=== PATIENT | male | born 1945 | race Caucasian/White ===

== ENCOUNTER 2017-06-04 16:36 | Inpatient (IN) | payer MEDICARE, OTHER ==
[~2017-06-04] VITALS: Ht 185.4 cm; Wt 87.7 kg
--- NOTE | 2017-06-04 16:36 | NUR ---
SEVERE ABDOMINAL PAIN X TODAY, NAUSEA, FEELING WEAK. NAD NOTED. PT AAO X4, AMB WITH STEADY GAIT. VSS. DR GONZALEZ AT BEDSIDE FOR EVAL.
[2017-06-04] MEDS ORDERED: MORPHINE SULFATE INJ 2 MG/ML DISP.SYRIN IV ONE ×2 (17:00→18:30)
[2017-06-04] MEDS ORDERED: IV NS 0.9% 1,000 ML BAG IV ONE (17:00)
[2017-06-04] MEDS ORDERED: ONDANSETRON HCL/PF 4 MG/2 ML VIAL IVP ONE (17:00)
[2017-06-04] MEDS ORDERED: MORPHINE SULFATE INJ 2 MG/ML DISP.SYRIN ONE (17:08)
[2017-06-04] MEDS ORDERED: ONDANSETRON HCL/PF 4 MG/2 ML VIAL ONE ×2 (17:08→18:30)
[2017-06-04 17:09] LABS: MEAN CORPUSCULAR VOLUME 88 fL (80-96)
[2017-06-04] MEDS ORDERED: MORPHINE SULFATE INJ 4 MG/ML DISP.SYRIN ONE ×2 (17:09→18:31)
--- NOTE | 2017-06-04 17:12 | NUR ---
PT TO CT
[2017-06-04 17:14] LABS: BASOPHILS # (AUTO) 1.1 /CMM (0.0-0.2); BASOPHILS % (AUTO) 1.4 % (0.0-2.0); EOSINOPHILS # (AUTO) 0.2 /CMM (0.0-0.7); EOSINOPHILS % (AUTO) 0.3 % (0.0-6.0); HEMATOCRIT 38 % (39-51); LYMPHOCYTES % (AUTO) 1.2 % (20.0-44.0); MEAN CORPUSCULAR HEMOGLOBIN 30 PG (26.0-33.0); MEAN CORPUSCULAR HGB CONC 35 g/dl (31.0-36.0); MONOCYTES # (AUTO) 0.6 /CMM (0.1-1.30); MONOCYTES % (AUTO) 0.7 % (2.0-12.0); NEUTROPHILS % (AUTO) 96.4 % (43.0-81.0); PLATELET COUNT (AUTO) 360 /CMM (150-450); RDW COEFFICIENT OF VARIATION 16.7 (11.5-15.0); RED BLOOD CELL COUNT(AUTO) 4.29 MIL/uL (4.5-6.0)
[2017-06-04 17:26] LABS: WHITE BLOOD COUNT (AUTO) 79.9 K/uL (4.3-11.0)
[2017-06-04 18:14] LABS: CALCIUM, SERUM 9.3 mg/dL (8.5-10.1); CARBON DIOXIDE 27 mmol/L (21-32); CHLORIDE 100 mmol/L (98-107); CREATININE 1.3 mg/dL (0.6-1.3); GLUCOSE 116 mg/dL (74-106); POTASSIUM 4.3 mmol/L (3.5-5.1); SODIUM SERUM 135 mmol/L (136-145); UREA NITROGEN, BLOOD 24 mg/dL (7-18)
[2017-06-04 18:20] LABS: ALANINE AMINOTRANSFERASE 21 U/L (12-78); ALBUMIN 2.5 g/dL (3.4-5.0); ALKALINE PHOSPHATASE 232 U/L (46-116); ASPARTATE AMINOTRANSFERASE 25 U/L (15-37); BILIRUBIN,DIRECT 0.2 mg/dL (0.0-0.2); BILIRUBIN,TOTAL 0.6 mg/dL (0.2-1.0); LIPASE 158 U/L (73-393); TOTAL PROTEIN, SERUM 7.4 g/dL (6.4-8.2)
[2017-06-04] MEDS ORDERED: ONDANSETRON HCL/PF - ER 4 MG/2 ML VIAL IV ONE (18:30)
--- NOTE | 2017-06-04 18:41 | NUR ---
EPIC PAGED, CHUTE BUILDER
[2017-06-04 18:43] LABS: APPEARANCE,URINE Cloudy (CLEAR); BILIRUBIN,URINE SMALL (NEGATIVE); BLOOD, URINE Trace-lysed Ery/uL (NEGATIVE); COLOR,URINE Dark (YELLOW); KETONES,URINE 40 (NEGATIVE); LEUKOCYTE ESTERASE ,URINE Negative (NEGATIVE); NITRITE, URINE Negative (NEGATIVE); PROTEIN,URINE >=300 mg/dl (NEGATIVE); UGLUCOSE Negative (NEGATIVE); UROBILINOGEN,URINE 0.2 EU/dL (0.2)
--- NOTE | 2017-06-04 18:44 | NUR ---
CALLED NURSING SUP. FOR MS BED
[2017-06-04 18:49] LABS: BAND % (MANUAL) 4 % (0.0-5.0); LYMPHOCYTES % (MANUAL) 1 % (16-48); MONOCYTES % (MANUAL) 4 % (0-11.0); NEUTROPHILS % (MANUAL) 91 (42-76)
[2017-06-04 19:00] LABS: BACTERIA,URINE None seen /HPF (None Seen); SQUAMOUS EPITHELIAL CELL,UR Moderate /HPF (None Seen); URINE AMORPHOUS URATE Many /HPF (None Seen); WBC,URINE 0-2 /HPF (0-3)
--- NOTE | 2017-06-04 19:30 | NUR ---
MS 309-1
[2017-06-04 20:00] VITALS: BP 140/67
--- NOTE | 2017-06-04 20:00 | NUR ---
RN NOTES RECEIVED NEW ADMISSION TO THE FLOOR, ALERT AND ORIENTED X4, NO SOB, NO RESPIRATORY DISTRESS, LUNG SOUNDS ARE CLEAR, SPO2 AT ROOM AIR 96%, CAME IN FOR NAUSEA AND GENERALIZED WEAKNESS, COMPLAINING OF 6/10 ABDOMINAL PAIN TO RIGHT LOWER QUADRANT DESCRIBED ACHING PAIN. ABLE TO TOLERATE WATER WITHOUT VOMITING. RECENTLY DIAGNOSED WITH PANCREATIC CANCER IN MAY 24, 2017. LAST MEAL WAS 06/03/17 AND HAD DID NOT EAT SINCE THEN. ABLE TO URINATE IN SMALL AMOUNT VIA URINAL. PER CT OF ABDOMEN, PROSTATE ENLARGED. NOTIFIED TRAVEL WRITER RAMILA. GENERAL SKIN CONDITION IS CLEAR, INTACT, STILL DRIVES. ORIENTED TO ROOM AND USE OF CALL LIGHT. NEEDS ATTENDED, CALL LIGHT WITHIN REACH.
[2017-06-04] MEDS ORDERED: Z GUARD REMEDY 2 OZ OINT TP PRN (21:30)
[2017-06-04] MEDS ORDERED: METOCLOPRAMIDE HCL 10 MG/2 ML VIAL IV PRN (21:30)
[2017-06-04] MEDS ORDERED: ONDANSETRON HCL/PF 4 MG/2 ML VIAL IVP PRN (21:30)
[2017-06-04] MEDS ORDERED: MAG HYDROX/AL HYDROX/SIMETH 30 ML UDC PO PRN (21:30)
[2017-06-04] MEDS ORDERED: MAGNESIUM HYDROXIDE 30 ML UDC PO PRN (21:30)
[2017-06-04] MEDS ORDERED: ACETAMINOPHEN 325 MG TABLET PO PRN (21:30)
[2017-06-04] MEDS ORDERED: HYDROCODONE/APAP 5/325MG 1 EACH TABLET PO PRN (21:30)
[2017-06-04] MEDS ORDERED: ZOLPIDEM TARTRATE 5 MG TABLET PO PRN (21:30)
[2017-06-04] MEDS ORDERED: MORPHINE SULFATE INJ 2 MG/ML DISP.SYRIN IV PRN ×2 (21:30)
[2017-06-04] MEDS ORDERED: TAMSULOSIN 0.4 MG CAP.SR.24H ONE (21:49)
[2017-06-04] MEDS: TAMSULOSIN 0.4 MG CAP.SR.24H PO SCH ×2 (21:58→23:18)
[2017-06-04] MEDS: IV NS 0.9% 1,000 ML IV PRN (21:58)
--- NOTE | 2017-06-04 23:17 | NUR ---
RN NOTES FLOMAX 0.8 MG PO GIVEN, SCAN DID NOT SAVE, USED MANUAL BAR CODE
--- NOTE | 2017-06-05 05:19 | NUR ---
RN NOTES IV LINE IS DISLODGED, WITH MODERATE BLEEDING, SECURED WITH DRESSING, PATIENT REFUSED IV REINSERTION. Addendum: 06/05/17 at 0611 by CESARIO BARBER RN DISREGARD ABOVE CHARTING, NOT FOR PATIENT
--- NOTE | 2017-06-05 06:10 | NUR ---
RN NOTES PATIENT IS ALERT AND AWAKE, NO SOB, NO DISTRESS, NO COMPLAIN OF ABDOMINAL PAIN, NO VOMITING, TOLERATING WATER, EDUCATED PATIENT TO ASK FOR PAIN MEDICATION IF PAIN IS STARTING LESS THAN 5/10. WITH URINARY FREQUENCY DUE TO ENLARGED PROSTATE, GIVEN FLOMAX, ALL NEEDS ATTENDED, CALL LIGHT WITHIN REACH.
--- NOTE | 2017-06-05 07:38 | NUR ---
MS/RN OPENING NOTE PATIENT IN BED IN STABLE CONDITION. A/O X 4. NO SIGNS OF ACUTE DISTRESS. NO COMPLAIN OF PAIN OR DISCOMFORT. ALL NEEDS ATTENDED TO. CALL LIGHT WITHIN REACH. WILL CONTINUE TO MONITOR TO ENSURE SAFETY.
[2017-06-05 08:54] LABS: ALBUMIN 2.4 g/dL (3.4-5.0); AMYLASE 23 U/L (25-115); CARBON DIOXIDE 28 mmol/L (21-32); CHLORIDE 102 mmol/L (98-107); CREATININE 1.7 mg/dL (0.6-1.3); GLUCOSE 72 mg/dL (74-106); MAGNESIUM 1.7 mg/dL (1.8-2.4); PHOSPHORUS 4.9 mg/dL (2.5-4.9); POTASSIUM 4.1 mmol/L (3.5-5.1); SODIUM SERUM 138 mmol/L (136-145); UREA NITROGEN, BLOOD 25 mg/dL (7-18)
[2017-06-05 08:56] LABS: EOSINOPHILS # (AUTO) 0.5 /CMM (0.0-0.7); EOSINOPHILS % (AUTO) 0.8 % (0.0-6.0); HEMATOCRIT 35 % (39-51); HEMOGLOBIN 11.6 g/dL (13.5-17.5); LYMPHOCYTES # (AUTO) 0.9 /CMM (0.8-4.8); LYMPHOCYTES % (AUTO) 1.5 % (20.0-44.0); MEAN CORPUSCULAR HEMOGLOBIN 30 PG (26.0-33.0); MEAN CORPUSCULAR HGB CONC 33 g/dl (31.0-36.0); MEAN CORPUSCULAR VOLUME 90 fL (80-96); MONOCYTES # (AUTO) 0.9 /CMM (0.1-1.30); MONOCYTES % (AUTO) 1.5 % (2.0-12.0); NEUTROPHILS % (AUTO) 96.2 % (43.0-81.0); PLATELET COUNT (AUTO) 332 /CMM (150-450); RDW COEFFICIENT OF VARIATION 17.4 (11.5-15.0); RED BLOOD CELL COUNT(AUTO) 3.87 MIL/uL (4.5-6.0)
[2017-06-05 09:01] LABS: INR 1.12 (0.87-1.13); PROTHROMBIN TIME 11.7 SECS (9.5-12.7)
[2017-06-05 09:08] LABS: THYROID STIMULATING HORMONE 3.118 uIU/mL (0.358-3.74)
[2017-06-05 09:21] LABS: IRON, SERUM 37 ug/dl (50-175); TOTAL IRON BINDING CAPACITY 176 ug/dl (250-450)
[2017-06-05 09:41] LABS: WHITE BLOOD COUNT (AUTO) 60.3 K/uL (4.3-11.0)
--- NOTE | 2017-06-05 09:41 | NUR ---
MS/RN LICENSED PRACTICAL RELAYED CRITICAL RECEIVED CALL FROM NOAH FROM LAB AND SHE RELAYED CRITICAL WBC OF 60.3. PAGED DR MONTES TO NOTIFY. PATIENT NOTED WITH NO DISTRESS. NO COMPLAIN OF PAIN OR DISCOMFORT. NO ELEVATED TEMP. WILL CONTINUE TO MONITOR FOR FURTHER CHANGES.
--- NOTE | 2017-06-05 09:53 | NUR ---
MS/RN SPOKE WITH DR MONTES SPOKE WITH DR MONTES AND MADE AWARE REGARDING PATIENT CRITICAL WBC 60.3H COMPARE TO YESTERDAY WBC 79.9 ITS TRENDING DOWN. NO SIGNS OF ACUTE DISTRESS. NO COMPLAIN OF PAIN OR DISCOMFORT. NO ELEVATED TEMP. WITH DIAGNOSIS OF PANCREATIC CANCER. PER DR MONTES NO NEW ORDERS AT THIS TIME. WILL CONTINUE TO MONITOR FOR FURTHER CHANGES.
--- NOTE | 2017-06-05 10:40 | NUR ---
PATIENT ARRIVED TO MS2 AND PLACED AT ROOM 206. RECEIVED REPORT FROM MS3W RN. WILL CONTINUE TO MONITOR AND ASSESS PATIENT
--- NOTE | 2017-06-05 10:48 | NUR ---
MS/RN TRANSFERRED TO MS 2 PATIENT TRANSFERRED TO MS 2 TO ROOM 206-2, REPORT GIVEN TO OUMOU MARSHALL FOR JACINTA.
[2017-06-05] MEDS: IV NS 0.9% 1,000 ML IV PRN (10:56)
[2017-06-05] MEDS ORDERED: Magnesium 1GM/D5W 100ML PREMIX 100 ML IV SCH (11:30)
[2017-06-05 13:57] LABS: LYMPHOCYTES % (MANUAL) 4 % (16-48); METAMYELOCYTES % 1 % (0-0); MONOCYTES % (MANUAL) 2 % (0-11.0); NEUTROPHILS % (MANUAL) 93 (42-76)
[2017-06-05 16:00] VITALS: BP 121/64
--- NOTE | 2017-06-05 18:57 | NUR ---
RN CLOSING NOTES PATIENT IS ALERT AND ORIENTED TO NAME, PLACE AND TIME. NO SIGNS AND SYMPTOMS OF DISTRESS. BREATHING IS UNLABORED AND EVEN. BED IN LOW POSITION, LOCKED AND TWO SIDE RAILS ARE UP FOR SAFETY. CALL LIGHT WITHIN REACH. ALL NURSING CARE ANTICIPATED AND ATTENDED FOR. IV SITE IS INTACT AND PATENT. IS AT BEDSIDE. WILL ENDORSE TO TEST ENGINEERING TECHNICIAN NURSE
[2017-06-05 20:00] VITALS: BP 148/67
[2017-06-05] MEDS: TAMSULOSIN 0.4 MG CAP.SR.24H PO SCH (21:48)
--- NOTE | 2017-06-06 06:43 | NUR ---
MS RN NOTES AWAKE & RESPONSIVE. NOT IN ANY DISTRESS. NO SOB NOTED. DENIES ANY PAIN OR DISCOMFORT AT THIS TIME. WITH IVF INFUSING WELL. MONITORED ACCORDINGLY. CALL LIGHT WITHIN REACH. BED IN LOWEST POSITION. SR UP X 2 FOR SAFETY WITH BED ALARM ON. WILL ENDORSE TO NEXT SHIFT.
[2017-06-06 07:06] LABS: CALCIUM, SERUM 9.2 mg/dL (8.5-10.1); CARBON DIOXIDE 26 mmol/L (21-32); CHLORIDE 102 mmol/L (98-107); CREATININE 1.1 mg/dL (0.6-1.3); GLUCOSE 79 mg/dL (74-106); MAGNESIUM 1.8 mg/dL (1.8-2.4); POTASSIUM 3.6 mmol/L (3.5-5.1); SODIUM SERUM 138 mmol/L (136-145); UREA NITROGEN, BLOOD 21 mg/dL (7-18)
--- NOTE | 2017-06-06 07:54 | NUR ---
MS RN OPENING NOTE PATIENT IS ALERT AND ORIENTED x4. NO SOB OR DISTRESS NOTED. CALL LIGHT WITHIN REACH. SAFETY MEASURES IMPLEMENTED. ABLE TO COMMUNICATE NEEDS. PATIENT STATES HE IS "RESTLESS" WAS ABLE TO SLEEP BUT WOKE UP IN THE MIDDLE OF THE NIGHT. AMBULATORY. WILL CONTINUE TO MONITOR
[2017-06-06 08:00] VITALS: BP 127/66
[2017-06-06] MEDS: IV NS 0.9% 1,000 ML IV PRN (08:40)
[2017-06-06 10:16] LABS: THYROID STIMULATING HORMONE 3.657 uIU/mL (0.358-3.74)
--- NOTE | 2017-06-06 15:44 | NUR ---
MS X RAY TECHNOLOGIST NOTE PATIENT IS ALERT AND ORIENTED x4. NO PAIN AT THIS TIME. NO SOB OR DISTRESS NOTED. CALL LIGHT WITHIN REACH AT ALL TIMES. SAFETY MEASURES IMPLEMENTED. ABLE TO COMMUNICATE NEEDS. ALL DUE MEDICATIONS GIVEN ORDERED. ALL NURSING CARE NEEDS ATTENDED TO NEEDED. ALL BELONGINGS WITH PATIENT AT DISCHARGE. ALL DISCHARGE INSTRUCTIONS GIVEN TO PATIENT, VERBALIZES INSTRUCTIONS. LEFT VIA PRIVATE CAR WITH . FOLLOW UP APPT WITH DR. LAYTON Jun AT 1:30. IV REMOVED, SKIN INTACT
== END 2017-06-06 16:45 | disposition home or self-care (01) | DRG 436 ==
LOC: ER 16:39 → MED 19:44 → MEDSG2 06-05 10:32
PROVIDERS: ADMIT Internal Medicine; ATTEND Internal Medicine
DX: C25.9 Malignant neoplasm of pancreas, unspecified (principal); C78.7 Secondary malignant neoplasm of liver and intrahepatic bile duct; E44.0 Moderate protein-calorie malnutrition; D63.8 Anemia in other chronic diseases classified elsewhere; E03.9 Hypothyroidism, unspecified; N40.0 Benign prostatic hyperplasia without lower urinary tract symptoms; E78.5 Hyperlipidemia, unspecified; D72.829 Elevated white blood cell count, unspecified
CPT/HCPCS: 36415; 71010-TC; 80048-TC; 80076-TC; 81000-TC; 82040-TC; 82150-TC; 82728-TC; 82746; 83540-TC; 83690-TC; 83735-TC; 84100-TC; 84443-TC; 85025-TC; 85730-TC; 86301; 87081-TC; A4606; J2270; J2405; J3475; J7030; Z7610

== ENCOUNTER 2017-06-18 16:09 | Inpatient (IN) | payer MEDICARE ==
[~2017-06-18] VITALS: Ht 182.9 cm; Wt 85.8 kg
--- NOTE | 2017-06-18 16:25 | NUR ---
AAOX3, BB FROM HOME FOR WEAKNESS X SATURDAY S/P CHEMO ON SATURDAY. RR IS EVEN AND UNLABORED WITH NAD NOTED. SKIN IS WARM AND DRY. PLACED ON MONITOR. WILL CONTINUOUSLY MONITOR THE PATIENT. DR PARDO AT BS FOR EVAL.
--- NOTE | 2017-06-18 17:09 | NUR ---
CONTACT INFO: AMARJIT (SIGNIFICANT OTHER) [phone]
[2017-06-18 18:07] LABS: BASOPHILS # (AUTO) 0.1 /CMM (0.0-0.2); BASOPHILS % (AUTO) 0.7 % (0.0-2.0); EOSINOPHILS # (AUTO) 0.2 /CMM (0.0-0.7); HEMATOCRIT 32 % (39-51); HEMOGLOBIN 10.8 g/dL (13.5-17.5); LYMPHOCYTES # (AUTO) 0.2 /CMM (0.8-4.8); LYMPHOCYTES % (AUTO) 1.8 % (20.0-44.0); MEAN CORPUSCULAR HEMOGLOBIN 30 PG (26.0-33.0); MEAN CORPUSCULAR HGB CONC 34 g/dl (31.0-36.0); MEAN CORPUSCULAR VOLUME 88 fL (80-96); MONOCYTES % (AUTO) 0.1 % (2.0-12.0); NEUTROPHILS # (AUTO) 8.3 /CMM (1.8-8.9); NEUTROPHILS % (AUTO) 95.4 % (43.0-81.0); PLATELET COUNT (AUTO) 79 /CMM (150-450); RDW COEFFICIENT OF VARIATION 16.2 (11.5-15.0); RED BLOOD CELL COUNT(AUTO) 3.61 MIL/uL (4.5-6.0); WHITE BLOOD COUNT (AUTO) 8.8 K/uL (4.3-11.0)
[2017-06-18 18:17] LABS: ALANINE AMINOTRANSFERASE 72 U/L (12-78); ALBUMIN 2.2 g/dL (3.4-5.0); ALKALINE PHOSPHATASE 154 U/L (46-116); ASPARTATE AMINOTRANSFERASE 39 U/L (15-37); BILIRUBIN,DIRECT 0.8 mg/dL (0.0-0.2); BILIRUBIN,TOTAL 1.3 mg/dL (0.2-1.0); CALCIUM, SERUM 8.7 mg/dL (8.5-10.1); CARBON DIOXIDE 21 mmol/L (21-32); CHLORIDE 99 mmol/L (98-107); CREATININE 3.6 mg/dL (0.6-1.3); GLUCOSE 168 mg/dL (74-106); LIPASE 56 U/L (73-393); SODIUM SERUM 133 mmol/L (136-145)
[2017-06-18 18:18] LABS: INR 1.16 (0.87-1.13); PROTHROMBIN TIME 12.1 SECS (9.5-12.7); UREA NITROGEN, BLOOD 105 mg/dL (7-18)
[2017-06-18 19:06] LABS: BAND % (MANUAL) 10 % (0.0-5.0); EOSINOPHILS % (MANUAL) 2 % (0-4); LYMPHOCYTES % (MANUAL) 1 % (16-48); MONOCYTES % (MANUAL) 1 % (0-11.0); NEUTROPHILS % (MANUAL) 86 (42-76)
[2017-06-18 19:37] LABS: APPEARANCE,URINE CLOUDY (CLEAR); BILIRUBIN,URINE NEGATIVE (NEGATIVE); BLOOD, URINE 3+ Ery/uL (NEGATIVE); COLOR,URINE YELLOW (YELLOW); KETONES,URINE NEGATIVE (NEGATIVE); LEUKOCYTE ESTERASE ,URINE TRACE (NEGATIVE); NITRITE, URINE NEGATIVE (NEGATIVE); PH,URINE 5.5 (5.0-8.0); PROTEIN,URINE 2+ mg/dl (NEGATIVE); UGLUCOSE NEGATIVE (NEGATIVE); UROBILINOGEN,URINE 0.2 EU/dL (0.2)
[2017-06-18 19:42] LABS: BACTERIA,URINE Few /HPF (None Seen); SQUAMOUS EPITHELIAL CELL,UR Rare /HPF (None Seen); WBC,URINE 21-50 /HPF (0-3)
--- NOTE | 2017-06-18 19:57 | NUR ---
DR PARDO AT BEDSIDE TALKING WITH PATIENT AND .
--- NOTE | 2017-06-18 20:14 | NUR ---
CALLED [facility] GAS APPLIANCE ADJUSTER. SHE STATED THEY HAVE NO BEDS AVAILABLE AND PATIENT CAN BE ADMITTED HERE.
--- NOTE | 2017-06-18 20:24 | NUR ---
CALLED DR DECKER ON THE PHONE WITH DR PARDO.
--- NOTE | 2017-06-18 21:26 | NUR ---
DR BRIANNE WILLIAMSON AT BEDSIDE TO EVALUATE PATIENT.
--- NOTE | 2017-06-18 23:14 | NUR ---
REPORT GIVEN TO RUSSELL MARSHALL FOR ADMISSION AND JACINTA.
[2017-06-18] MEDS ORDERED: ZOLPIDEM TARTRATE 5 MG TABLET PO PRN (23:30)
[2017-06-18] MEDS ORDERED: MAG HYDROX/AL HYDROX/SIMETH 30 ML UDC PO PRN (23:30)
[2017-06-18] MEDS ORDERED: MAGNESIUM HYDROXIDE 30 ML UDC PO PRN (23:30)
[2017-06-18] MEDS ORDERED: CEFTRIAXONE 1 G in IV D5W 50 ML IV SCH (23:30)
[2017-06-18] MEDS ORDERED: ONDANSETRON HCL/PF 4 MG/2 ML VIAL IVP PRN (23:30)
[2017-06-18] MEDS ORDERED: Z GUARD REMEDY 2 OZ OINT TP PRN (23:30)
--- NOTE | 2017-06-18 23:50 | NUR ---
CDL INSTRUCTOR NOTES, RECEIVED PATIENT FROM ER DEPARTMENT VIA STRETCHER ACCOMPANIED BY STAFF, UNDER THE MEDICAL SERVICES OF DAHIANA GONZALES, ADMITTING DIAGNOSES INCLUDED BUT ARE NOT LIMITED TO MARIE, RIGHT URETER STONE, MILD HYDRONEPHROSIS, PANCREATIC CA DIAGNOSED MAY 26, HEART MURMUR, PATIENT A/O X3 ABLE TO COMMUNICATE NEEDS AND CONCERNS, BREATHING EVEN AND UNLABORED NO S/S OF SOB, C/O PAIN IN RIGHT ABDOMINAL AREA, ABDOMEN SOFT AND NON DISTENDED WITH POSITIVE BOWEL SOUNDS UPON AUSCULTATION AFEBRILE AT THIS TIME, SKIN DRY, WARM AND INTACT, NOTED WITH PICC LINE IN SUKUMAR PATENT AND INTACT, HAWKINS CATHETER IN PLACE NOTED WITH 40CC OF YELLOW URINE AT THIS TIME, PLACE PATIENT IN BED AND PROVIDED SKIN CARE, SKIN INTACT, ALL NEED PROVIDED AND WILL ADMINISTER MEDICATIONS ORDERED, BED IN LOCKED AND IN LOWEST POSITION, ORIENTED TO ROOM AND CALL LIGHT W/N REACH. WILL CONTINUE TO MONITOR CLOSELY. VS 98.8, 74, 125/71, 19, 98% RA.
--- NOTE | 2017-06-18 23:50 | NUR ---
TRANSFERRED PATIENT TO [facility], NO INCIDENT NOTED.
[2017-06-19] MEDS ORDERED: CEFTRIAXONE 1 G VIAL ONE (00:03)
[2017-06-19] MEDS ORDERED: HYDROCODONE/APAP 5/325MG 1 EACH TABLET ONE ×2 (00:03→06:45)
[2017-06-19] MEDS: HYDROCODONE/APAP 5/325MG 1 EACH TABLET PO PRN ×2 (00:12→06:51)
[2017-06-19 00:55] LABS: IRON, SERUM 25 ug/dl (50-175); TOTAL IRON BINDING CAPACITY 131 ug/dl (250-450)
--- NOTE | 2017-06-19 02:10 | NUR ---
RN MS NOTES, PATIENT C/O SENSATION TO URINATE, PATIENT WITH HAWKINS CATHETER IN PLACE, MINIMAL URINE OUTPUT NOTED IN THE BAG, IN 0.9% NS AT 75 ML/HR, BLADDER SCAN DONE AND ACCORDING TO IT 20ML OF URINE IN THE BLADDER. CALLED MD LOYOLA AND INFORMED ABOUT PATIENT COMPLAIN, AND SHE REPLIED WITH N.O OD GIVE 0.9% NS 500ML BOLUS X1. ORDER NOTED AND CARRIED OUT, WILL CONTINUE TO MONITOR CLOSELY.
[2017-06-19] MEDS ORDERED: IV NS 0.9% 500 ML IV ONE (02:30)
[2017-06-19 04:00] VITALS: BP 133/66
[2017-06-19 06:36] LABS: EOSINOPHILS # (AUTO) 0.1 /CMM (0.0-0.7); EOSINOPHILS % (AUTO) 1.3 % (0.0-6.0); HEMATOCRIT 26 % (39-51); HEMOGLOBIN 8.9 g/dL (13.5-17.5); LYMPHOCYTES # (AUTO) 0.3 /CMM (0.8-4.8); LYMPHOCYTES % (AUTO) 5.9 % (20.0-44.0); MEAN CORPUSCULAR HEMOGLOBIN 31 PG (26.0-33.0); MEAN CORPUSCULAR HGB CONC 34 g/dl (31.0-36.0); MEAN CORPUSCULAR VOLUME 89 fL (80-96); MONOCYTES % (AUTO) 0.2 % (2.0-12.0); NEUTROPHILS # (AUTO) 4.6 /CMM (1.8-8.9); NEUTROPHILS % (AUTO) 92.6 % (43.0-81.0); PLATELET COUNT (AUTO) 64 /CMM (150-450); RDW COEFFICIENT OF VARIATION 17.5 (11.5-15.0); RED BLOOD CELL COUNT(AUTO) 2.91 MIL/uL (4.5-6.0)
[2017-06-19 06:37] LABS: INR 1.18 (0.87-1.13); PROTHROMBIN TIME 12.3 SECS (9.5-12.7)
[2017-06-19 07:13] LABS: ALANINE AMINOTRANSFERASE 53 U/L (12-78); ALBUMIN 1.8 g/dL (3.4-5.0); ALKALINE PHOSPHATASE 121 U/L (46-116); ASPARTATE AMINOTRANSFERASE 28 U/L (15-37); BILIRUBIN,TOTAL 1.1 mg/dL (0.2-1.0); CALCIUM, SERUM 7.9 mg/dL (8.5-10.1); CARBON DIOXIDE 18 mmol/L (21-32); CHLORIDE 104 mmol/L (98-107); GLUCOSE 157 mg/dL (74-106); PHOSPHORUS 6.6 mg/dL (2.5-4.9); POTASSIUM 4.9 mmol/L (3.5-5.1); SODIUM SERUM 137 mmol/L (136-145); TOTAL PROTEIN, SERUM 5.9 g/dL (6.4-8.2)
[2017-06-19] MEDS: IV NS 0.9% 1,000 ML IV PRN ×2 (07:15→15:38)
[2017-06-19 07:16] LABS: UREA NITROGEN, BLOOD 104 mg/dL (7-18)
--- NOTE | 2017-06-19 07:30 | NUR ---
MS RN OPENING RECEIVED PATIENT A/OX3 STATES NORCO IS NOT HELPING WITH PAIN. WILL F/U WITH MD. NON PHARM MEASURES TAKEN TO ASSIST PATIENT COMFORT LEVEL. PATIENT NEEDS IN REACH. BED LOWERED AND LOCKED, RAILS UPX3 FOR SAFETY. BED ALARM ON. IVF RUNNING ORDERED. HAWKINS CATH IN PLACE AND DRAINING GEOFFREY CLEAR URINE. PATIENT APPEARS STABLE AT THIS TIME.
[2017-06-19 07:42] LABS: CHOLESTEROL 78 mg/dL (<200); CREATINE KINASE MB 0.4 ng/mL (0-3.6); HDL CHOLESTEROL 25 mg/dL (40-60); LDL 42 mg/dL (0-99); THYROID STIMULATING HORMONE 1.721 uIU/mL (0.358-3.74); TRIGLYCERIDES 77 mg/dL (30-150)
[2017-06-19 08:00] VITALS: BP 128/75
[2017-06-19] MEDS: PANTOPRAZOLE 40 MG TABLET.DR PO SCH (08:32)
--- NOTE | 2017-06-19 08:50 | NUR ---
MS RN NOTES NOTIFIED DR ESCALERA OF CONSULT.
[2017-06-19 08:52] VITALS: BP 128/75
[2017-06-19 09:02] LABS: BAND % (MANUAL) 5 % (0.0-5.0); EOSINOPHILS % (MANUAL) 3 % (0-4); LYMPHOCYTES % (MANUAL) 8 % (16-48); MONOCYTES % (MANUAL) 1 % (0-11.0); NEUTROPHILS % (MANUAL) 83 (42-76)
[2017-06-19] MEDS ORDERED: HYDROMORPHONE 1 MG/1 ML DISP.SYRIN IV PRN (09:30)
--- NOTE | 2017-06-19 12:16 | NUR ---
MS RN NOTES PATIENT RESTING COMFORTABLY AT THIS TIME. ALL DUE MEDS GIVEN AND ALL NEEDS MET. CARE OF PATIENT ENDORSED TO JOANNA LOZANO FOR JACINTA
[2017-06-19 16:00] VITALS: BP 124/64
[2017-06-19 17:49] LABS: APPEARANCE,URINE CLEAR (CLEAR); BILIRUBIN,URINE NEGATIVE (NEGATIVE); BLOOD, URINE 3+ Ery/uL (NEGATIVE); COLOR,URINE YELLOW (YELLOW); KETONES,URINE NEGATIVE (NEGATIVE); PROTEIN,URINE TRACE mg/dl (NEGATIVE); UGLUCOSE NEGATIVE (NEGATIVE)
[2017-06-19 17:50] LABS: LEUKOCYTE ESTERASE ,URINE NEGATIVE (NEGATIVE); NITRITE, URINE NEGATIVE (NEGATIVE); UROBILINOGEN,URINE 0.2 EU/dL (0.2)
[2017-06-19 17:59] LABS: CREATININE, URINE 64.6 MG/DL (30.0-125.0); URINE TOTAL PROTEIN 42.7 mg/dL (0-11.9)
--- NOTE | 2017-06-19 18:00 | NUR ---
AMARJIT [employer] SALES IN ORDERS GIVEN,SPOKE TO PT,S .
[2017-06-19 18:29] LABS: BACTERIA,URINE Few /HPF (None Seen); RBC,URINE TOO NUMEROUS TO COUN /HPF (0-2); SQUAMOUS EPITHELIAL CELL,UR Few /HPF (None Seen); WBC,URINE 0-2 /HPF (0-3)
[2017-06-19 18:33] LABS: EOSINOPHIL,URINE None Seen
[2017-06-19 20:00] VITALS: BP 138/63
--- NOTE | 2017-06-19 20:00 | NUR ---
MS RN NOTES RECEIVED PTS ON BED A/OX4 V/S STABLE AFEBRILE , NO SOB NO DISTRESS NOTED NO COMPLAIN OF PAIN , ALL NEEDS ATTENDEE TOO , PTS ON IVF OF NS AT 75 CC/HR IN PROGRESS , WITH F/C INTACT AND PATENT DRAINING WITH YELLOWISH URINE OUTPUT, KEPT PTS CLEAN DRY AND COMFORTABLE.
[2017-06-19] MEDS: CEFTRIAXONE 1 G in IV D5W 50 ML IV SCH (23:30)
[2017-06-20 04:00] VITALS: BP 140/70
--- NOTE | 2017-06-20 05:45 | NUR ---
ms rn notes pts on bed a/o x4 v/s stable afebrile , remains on ivf ns at 75cc/hr in progress .will endorse to rn day shift for continuity of care.
[2017-06-20] MEDS: IV NS 0.9% 1,000 ML IV PRN (06:03)
[2017-06-20 06:38] LABS: APPEARANCE,URINE SL CLOUDY (CLEAR); BILIRUBIN,URINE NEGATIVE (NEGATIVE); BLOOD, URINE 3+ Ery/uL (NEGATIVE); COLOR,URINE YELLOW (YELLOW); KETONES,URINE NEGATIVE (NEGATIVE); LEUKOCYTE ESTERASE ,URINE NEGATIVE (NEGATIVE); NITRITE, URINE NEGATIVE (NEGATIVE); PROTEIN,URINE NEGATIVE (NEGATIVE); UGLUCOSE NEGATIVE (NEGATIVE); UROBILINOGEN,URINE 0.2 EU/dL (0.2)
[2017-06-20 06:46] LABS: BACTERIA,URINE Few /HPF (None Seen); RBC,URINE 21-50 /HPF (0-2); SQUAMOUS EPITHELIAL CELL,UR Few /HPF (None Seen); WBC,URINE 0-2 /HPF (0-3)
[2017-06-20 07:03] LABS: CREATININE, URINE 51.6 MG/DL (30.0-125.0); URINE TOTAL PROTEIN 23.8 mg/dL (0-11.9)
[2017-06-20 07:39] LABS: BASOPHILS % (AUTO) 0.2 % (0.0-2.0); EOSINOPHILS # (AUTO) 0.1 /CMM (0.0-0.7); EOSINOPHILS % (AUTO) 1.9 % (0.0-6.0); HEMATOCRIT 26 % (39-51); HEMOGLOBIN 9.1 g/dL (13.5-17.5); LYMPHOCYTES # (AUTO) 0.2 /CMM (0.8-4.8); LYMPHOCYTES % (AUTO) 6.3 % (20.0-44.0); MEAN CORPUSCULAR HEMOGLOBIN 30 PG (26.0-33.0); MEAN CORPUSCULAR HGB CONC 34 g/dl (31.0-36.0); MEAN CORPUSCULAR VOLUME 88 fL (80-96); MONOCYTES % (AUTO) 0.5 % (2.0-12.0); NEUTROPHILS # (AUTO) 3.3 /CMM (1.8-8.9); NEUTROPHILS % (AUTO) 91.1 % (43.0-81.0); PLATELET COUNT (AUTO) 53 /CMM (150-450); RDW COEFFICIENT OF VARIATION 16.1 (11.5-15.0); RED BLOOD CELL COUNT(AUTO) 2.99 MIL/uL (4.5-6.0); WHITE BLOOD COUNT (AUTO) 3.6 K/uL (4.3-11.0)
--- NOTE | 2017-06-20 07:55 | NUR ---
MS RN OPENING NOTE PATIENT IS ALERT AND ORIENTED x4. NO PAIN AT THIS TIME. NO SOB OR DISTRESS NOTED. CALL LIGHT WITHIN REACH. SAFETY MEASURES IMPLEMENTED. ABLE TO COMMUNICATE NEEDS. PICC LINE INTACT AND PATENT NO REDNESS OR SWELLING NOTED. IV NS AT 75 ML/HR TOLERATING WELL. LABS THIS MORNING AWAITING RESULTS. HAWKINS CATHETER IN PLACE. WILL CONTINUE TO MONITOR THROUGHOUT SHIFT
[2017-06-20] MEDS: PANTOPRAZOLE 40 MG TABLET.DR PO SCH (07:59)
[2017-06-20 08:21] LABS: ALANINE AMINOTRANSFERASE 107 U/L (12-78); ALBUMIN 1.8 g/dL (3.4-5.0); ALKALINE PHOSPHATASE 116 U/L (46-116); ASPARTATE AMINOTRANSFERASE 112 U/L (15-37); BILIRUBIN,TOTAL 1.6 mg/dL (0.2-1.0); CALCIUM, SERUM 8.3 mg/dL (8.5-10.1); CARBON DIOXIDE 21 mmol/L (21-32); CHLORIDE 107 mmol/L (98-107); CREATININE 2.3 mg/dL (0.6-1.3); GLUCOSE 153 mg/dL (74-106); MAGNESIUM 1.7 mg/dL (1.8-2.4); PHOSPHORUS 4.3 mg/dL (2.5-4.9); POTASSIUM 4.4 mmol/L (3.5-5.1); SODIUM SERUM 141 mmol/L (136-145); TOTAL PROTEIN, SERUM 6.2 g/dL (6.4-8.2)
[2017-06-20 08:23] LABS: UREA NITROGEN, BLOOD 88 mg/dL (7-18)
[2017-06-20 08:24] LABS: CREATINE KINASE, TOTAL 10 U/L (39-308)
[2017-06-20 09:37] LABS: EOSINOPHIL,URINE None Seen
[2017-06-20 10:16] LABS: BAND % (MANUAL) 1 % (0.0-5.0); LYMPHOCYTES % (MANUAL) 10 % (16-48); MONOCYTES % (MANUAL) 2 % (0-11.0); NEUTROPHILS % (MANUAL) 87 (42-76)
[2017-06-20] MEDS ORDERED: Magnesium 1GM/D5W 100ML PREMIX 100 ML IV SCH (11:39)
--- NOTE | 2017-06-20 11:56 | NUR ---
MS RN NOTE MAGNESIUM-1.7 REPLACING AT THIS TIME. WILL CONTINUE TO MONITOR
[2017-06-20 12:19] VITALS: BP 157/62
--- NOTE | 2017-06-20 15:30 | NUR ---
MS RN NOTE PER MD TO REMOVE HAWKINS CATHETER. CATHETER REMOVED, PATIENT TOLERATED WELL AND VOIDED AFTER REMOVAL.
--- NOTE | 2017-06-20 18:37 | NUR ---
MS RN CLOSING NOTE NO NEW CHANGES IN PATIENT. NO PAIN AT THIS TIME. NO SOB OR DISTRESS NOTED. CALL LIGHT WITHIN REACH AT ALL TIMES. SAFETY MEASURES IMPLEMENTED. ALL DUE MEDICATION GIVEN ORDERED. HAWKINS CATHETER REMOVED EARLIER THIS AFTERNOON. SUKUMAR PICC LINE INTACT AND PATENT NO REDNESS OR SWELLING NOTED. MAGNESIUM REPLACED EARLIER TODAY. LABS IN THE MORNING. WILL ENDORSE TO ACTING INSTRUCTOR NURSE FOR JACINTA
--- NOTE | 2017-06-20 20:00 | NUR ---
MS1/RN OPENING NOTES RECEIVED PATIENT IN BED, RESTING COMFORTABLY, PROVIDED FLUIDS, SIN WARM TO TOUCH, RESPIRATIONS EVEN AND UNLABORED, HAWKINS CATHETER WAS REMOVED LATER IN PM PER AM RN ENRIQUE MONITOR, BED IN LOCK POSITION. IV HYDRATION, SUKUMAR PICC LINE WITH NO S/S OF INFILTRATION. CLL LIGHTS WITHIN REACH. WILL CONTINUE TO MONITOR.
[2017-06-20 21:31] VITALS: BP 129/59
[2017-06-20] MEDS: CEFTRIAXONE 1 G in IV D5W 50 ML IV SCH (22:17)
[2017-06-21 04:00] VITALS: BP 129/59
[2017-06-21 06:30] LABS: EOSINOPHILS # (AUTO) 0.2 /CMM (0.0-0.7); EOSINOPHILS % (AUTO) 7.3 % (0.0-6.0); HEMATOCRIT 26 % (39-51); LYMPHOCYTES # (AUTO) 0.3 /CMM (0.8-4.8); LYMPHOCYTES % (AUTO) 9.4 % (20.0-44.0); MEAN CORPUSCULAR HEMOGLOBIN 31 PG (26.0-33.0); MEAN CORPUSCULAR HGB CONC 35 g/dl (31.0-36.0); MEAN CORPUSCULAR VOLUME 89 fL (80-96); MONOCYTES % (AUTO) 0.5 % (2.0-12.0); NEUTROPHILS # (AUTO) 2.3 /CMM (1.8-8.9); NEUTROPHILS % (AUTO) 82.8 % (43.0-81.0); RDW COEFFICIENT OF VARIATION 18.1 (11.5-15.0); WHITE BLOOD COUNT (AUTO) 2.7 K/uL (4.3-11.0)
--- NOTE | 2017-06-21 06:46 | NUR ---
MS/RN CLOSING NOTES PATIENT IN BED, AWAKE, ALER, ABLE TO VERBALIZE NEEDS, ASSIST WITH NEEDS, BATHROOM PRIVELEDGE AND PROVIDE SNACKS, IV SUKUMAR PICC LINE AT NS 75ML/HR, SKIN WARM TO TOUCH, RESPIRATIONS EVEN AND UNLABORED, WILL CONTINUE TO MONITOR.
[2017-06-21 06:52] LABS: CALCIUM, SERUM 8.5 mg/dL (8.5-10.1); CARBON DIOXIDE 23 mmol/L (21-32); CHLORIDE 106 mmol/L (98-107); CREATININE 1.5 mg/dL (0.6-1.3); GLUCOSE 136 mg/dL (74-106); MAGNESIUM 1.7 mg/dL (1.8-2.4); PHOSPHORUS 2.9 mg/dL (2.5-4.9); POTASSIUM 3.7 mmol/L (3.5-5.1); SODIUM SERUM 139 mmol/L (136-145); UREA NITROGEN, BLOOD 64 mg/dL (7-18)
[2017-06-21 06:54] LABS: PLATELET COUNT (AUTO) 43 /CMM (150-450)
--- NOTE | 2017-06-21 06:55 | NUR ---
MS/RN NOTES [place] [address] WILL ENDORSE TO KANE MARSHALL FOR F/U. Addendum: 06/21/17 at 0657 by DAHIANA ESTRADA RN PLS IGNORE PREVIOUS NOTE[place] [address] LOW FROM LATEST LAB RESULT.
[2017-06-21] MEDS: PANTOPRAZOLE 40 MG TABLET.DR PO SCH (08:43)
[2017-06-21 09:28] LABS: EOSINOPHILS % (MANUAL) 7 % (0-4); LYMPHOCYTES % (MANUAL) 6 % (16-48); MONOCYTES % (MANUAL) 1 % (0-11.0); NEUTROPHILS % (MANUAL) 86 (42-76)
--- NOTE | 2017-06-21 10:23 | NUR ---
RN NOTES PICC LINE DISCONTINUED PER RAMILA SKILLED NURSING CASE MANAGER ORDER .
--- NOTE | 2017-06-21 10:48 | NUR ---
MD Heath aware patient platelet count [id number] due to chemotherapy. 0k for Discharge orders verified. patient awake, alert, oriented, and time. no s/s of infection or distress.
[2017-06-21] MEDS ORDERED: MAGNESIUM OXIDE 400 MG TABLET PO ONE (11:00)
[2017-06-24 15:11] LABS: *SPE A/G RATIO 0.7 (0.7-1.7); *SPE ALBUMIN 2.3 g/dL (2.9-4.4); *SPE ALPHA-1-GLOBULIN 0.6 g/dL (0.0-0.4); *SPE ALPHA-2-GLOBULIN 0.7 g/dL (0.4-1.0); *SPE BETA GLOBULIN 0.7 g/dL (0.7-1.3); *SPE GLOBULIN, TOTAL 3.5 g/dL (2.2-3.9); *SPE M-SPIKE 0.5 g/dL (Not Observed); *SPEGAMMA GLOBULIN 1.5 g/dL (0.4-1.8)
== END 2017-06-21 11:30 | disposition home or self-care (01) | DRG 441 ==
LOC: ER 16:11 → MEDSG1 22:49
PROVIDERS: ADMIT Internal Medicine; ATTEND Internal Medicine
PROC: 02HV33Z Insertion of Infusion Device into Superior Vena Cava, Percutaneous Approach (ICD-10-PCS; principal; 2017-06-19)
DX: I81 Portal vein thrombosis (principal); N17.0 Acute kidney failure with tubular necrosis; E44.0 Moderate protein-calorie malnutrition; C78.7 Secondary malignant neoplasm of liver and intrahepatic bile duct; K56.7 Ileus, unspecified; C25.9 Malignant neoplasm of pancreas, unspecified; E86.0 Dehydration; N39.0 Urinary tract infection, site not specified; N13.2 Hydronephrosis with renal and ureteral calculous obstruction; N17.9 Acute kidney failure, unspecified; T45.1X5A Adverse effect of antineoplastic and immunosuppressive drugs, initial encounter; D50.9 Iron deficiency anemia, unspecified; D63.8 Anemia in other chronic diseases classified elsewhere; E03.9 Hypothyroidism, unspecified; E78.5 Hyperlipidemia, unspecified; N18.9 Chronic kidney disease, unspecified; I12.9 Hypertensive chronic kidney disease with stage 1 through stage 4 chronic kidney disease, or unspecified chronic kidney disease; Z87.442 Personal history of urinary calculi; B96.89 Other specified bacterial agents as the cause of diseases classified elsewhere
CPT/HCPCS: 36415; 71045-TC; 76770-TC; 80048-TC; 80053-TC; 80061-TC; 80076-TC; 81000-TC; 82550-TC; 82553-TC; 82570-TC; 82746; 83540-TC; 83690-TC; 83735-TC; 83970; 84100-TC; 84155; 84155-TC; 84165; 84300-TC; 84443-TC; 85025-TC; 85730-TC; 87040-TC; 87081-TC; 87086-TC; 93307-TC; A4606; J0696; J1170; J3475; J7030; J7040; J7060; Z7610